=== PATIENT | female | born 2000 | race Two or more races ===

== ENCOUNTER 2024-09-16 01:43 | Emergency (ER) | payer MEDICAID ==
[~2024-09-16] VITALS: Ht 157.5 cm; Wt 72.8 kg
[2024-09-16 01:51] VITALS: BP 141/71; PULSE 82; RESP 12; TEMP 98.9; O2SAT 95
[2024-09-16] MEDS ORDERED: ACET500T58 PO (02:10)
[2024-09-16] MEDS ORDERED: AMOX875T4 PO (02:10)
[2024-09-16] MEDS ORDERED: PRED20TA2 PO (02:10)
--- NOTE | 2024-09-16 02:10 | ED.PDOC ---
Eye-HPI HPI Comments 24-year-old female presents to ER with complaints of sore throat x1 week. Patient reports he has been experiencing a painful sore throat with white patches to tonsils x1 week. She rates her current sore throat pain an 8/10. States she has been taking Tylenol for pain with slight relief. Patient presents to ER ambulatory on arrival, with steady gait, in no distress. Denies fever, shortness of breath, cough, difficulty swallowing, nausea/vomiting, hea dache, known exposure to sick contacts or any further symptoms/complaints Chief Complaint: Sore Throat Time Seen by MD: 01:55 Primary Care Provider: UNKNOWN Reviewed Notes: Nurses Notes, Medications, Allergies Allergies: Coded Allergies: NO KNOWN ALLERGIES (Unverified , 09/16/24) Home Meds Active Scripts Acetaminophen (Acetaminophen) 500 Mg Tab, 500 MG PO Q4HPRN, #30 TAB 0 Refills Prov:ISABEL GLEASON 09/16/24 Prednisone (Prednisone) 20 Mg Tab, 20 MG PO BID for 5 Days, #10 TAB 0 Refills Prov:ISABEL GLEASON 09/16/24 Amoxicillin & Pot Clavulanate (Amoxicillin/Potassium Cla) 875 Mg Tab, 1 TAB PO BID for 7 Days, #14 TAB 0 Refills Prov:ISABEL GLEASON 09/16/24 Information Source: Patient Mode of Arrival: Ambulatory Past Medical History 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 Family History Family History: Unknown Social History Smoker: Non-Smoker Alcohol: Denies ETOH Use Drugs: Denies Drug Use Lives In: Home Constitutional: denies: chills, diaphoresis, fatigue, fever, malaise, sweats, weakness, others EENTM: reports: others ( STATED IN HPI) Respiratory: denies: cough, hemoptysis, orthopnea, SOB at rest, shortness of breath, SOB with excertion, stridor, wheezing, others Cardiovascular: denies: chest pain, dizzy spells, diaphoresis, Dyspnea on exertion, edema, irregular heart beat, left arm pain, lightheadedness, palpitations, PND, syncope, others Gastrointestinal: denies: abdomen distended, abdominal pain, blood streaked bowels, constipated, diarrhea, dysphagia, difficulty swallowing, hematemesis, melena, nausea, poor appetite, poor fluid intake, rectal bleeding, rectal pain, vomiting, others Genitourinary: denies: abnormal vagina bleeding, burning, dyspareunia, dysuria, flank pain, frequency, hematuria, incontinence, pain, , vagina discharge, urgency, others Neurological: denies: dizziness, fainting, headache, left sided numbness, left sided weakness, numbness, paresthesia, pre-existing deficit, right sided numbness, right sided weakness, seizure, speech problems, tingling, tremors, weakness, others Musculoskeletal: denies: back pain, gout, joint pain, joint swelling, muscle pain, muscle stiffness, neck pain, others Integumetry: denies: bruises, change in color, change in hair/nails, dryness, laceration, lesions, lumps, rash, wounds, others Allergic/Immunocompromised: denies: Difficulty Healing, Frequent Infections, Hives, Itching, others Hematologic/Lymphatic: denies: anemia, blood clots, easy bleeding, easy bruising, swollen glands, others Endocrine: denies: excessive hunger, excessive sweating, excessive thirst, excessive urination, flushing, intolerance to cold, intolerance to heat, unexplained weight gain, unexplained weight loss, others Psychiatric: denies: anxiety, bipolar disorder, depression, hopeless, panic disorder, schizophrenia, sleepless, suicidal, others Physical Exam General Appearance: No Apparent Distress HEENT: PERRL/EOMI, Pharyngeal Erythema (MILD TONSILLAR SWELLING/ERYTHEMA NOTED BILATERALLY WITH WHITE EXUDATES NOTED ON BILATERAL TONSILS. UVULA-NORMAL), TMs Normal Neck: Full Range of Motion, Non-Tender, Other (BILATERALLY CERVICAL LYMPHADENOPATHY) Respiratory: Chest Non-Tender, Lungs Clear, No Accessory Muscle Use, No Respiratory Distress, Normal Breath Sounds Cardiovascular: No Murmur, No Gallop, Regular Rate/Rhythm Breast Exam: Deferred Gastrointestinal: NOT DONE Genitalia: Deferred Pelvic: Deferred Rectal: Deferred Extremities: Normal capillary refill, Normal range of motion Neurologic: Alert, inspector rough castings II-XII nml as Tested, No Motor Deficits, Normal Affect, Normal Mood, No Sensory Deficits Cerebellar Function: Normal Reflexes: Normal Skin: Dry, Normal Color, Warm Peripheral Pulses: 2+ carotid (R), 2+ carotid (L), 2+ Radial (R), 2+ Radial (L), 2+ Brachial (R), 2+ Brachial (L) Lymphatic: Other (BILATERAL CERVICAL LYMPHADENOPATHY) Was a procedure done? Was a procedure done?: No Sedation Sedation?: No EENT DIFF Eye: N/A Sore Throat: Epiglottitis, Mononeucleosis, Peritonsillar Abscess X-Ray, Labs, Meds, VS Vital Signs Date Time Temp Pulse Resp B/P (MAP) Pulse Ox O2 Delivery O2 Flow Rate FiO2 09/16/24 01:51 98.9 82 12 141/71 (94) 95 98.9 Lab Test 09/16/24 01:53 Range/Units Group A Streptococcus Rapid Negative STREP SWAB REVIEWED - NEGATIVE ROCEPHIN 1 G IM ORDERED SOLU-MEDROL 125 MG IM ORDERED PATIENT HAD IMPROVEMENT IN SYMPTOMS, TOLERATING P.O. INTAKE WELL AND IN NO DISTRESS PRIOR TO DISCHARGE ADVISED TO DRINK PLENTY OF FLUIDS ADVISED TO FOLLOW UP WITH PCP IN 1-2 DAYS PATIENT VERBALIZED UNDERSTANDING AND AGREEABLE WITH CURRENT PLAN OF CARE ADVISED TO RETURN TO ER IMMEDIATELY IF SYMPTOMS WORSEN Time of 1ST Reevaluation: 01:44 Reevaluation 1ST: N/A Patient Education/Counseling: Diagnosis, Treatment, Prognosis, Need For Follow Up Family Education/Counseling: No Family Present Departure 1 Departure Time of Disposition: 02:02 Impression: Primary Impression: Acute tonsillitis Qualified Codes: J03.90 - Acute tonsillitis, unspecified Disposition: 01 HOME / SELF CARE / HOMELESS Condition: Stable e-Prescriptions Acetaminophen (Acetaminophen) 500 Mg Tab 500 MG PO Q4HPRN, #30 TAB 0 Refills Prov: ISABEL GLEASON 09/16/24 Prednisone (Prednisone) 20 Mg Tab 20 MG PO BID for 5 Days, #10 TAB 0 Refills Prov: ISABEL GLEASON 09/16/24 Amoxicillin & Pot Clavulanate (Amoxicillin/Potassium Cla) 875 Mg Tab 1 TAB PO BID for 7 Days, #14 TAB 0 Refills Prov: ISABEL GLEASON 09/16/24 Discharged With: Self Critical Care Note Critical Care Time?: No Stability Stability form required: No Heart Score Heart Score: Heart Score Response (Comments) Value History N/A 0 EKG N/A 0 Age N/A 0 Risk Factors N/A 0 Troponin N/A 0 Total 0 ISABEL GLEASON Sep 16, 2024 02:10
[2024-09-16 02:23] LABS: Rapid Strep A Screen-Throat Negative
[2024-09-16] MEDS: cefTRIAXone SOD 1,000 MG VL IM ONE (02:47)
[2024-09-16] MEDS: methylPREDNISolone SOD SUCC 125 MG/2 ML VL ONE (02:47)
[2024-09-16] MEDS: cefTRIAXone SOD 1,000 MG VL ONE (02:47)
[2024-09-16] MEDS: methylPREDNISolone SOD SUCC 125 MG/2 ML VL IM ONE (02:47)
== END 2024-09-16 02:50 | disposition home or self-care (01) ==
LOC: ER 01:43
DX: J03.90 Acute tonsillitis, unspecified (principal); Z98.890 Other specified postprocedural states; Z79.899 Other long term (current) drug therapy; Z79.52 Long term (current) use of systemic steroids
CPT/HCPCS: 87070; 87880; 96372; 99284; J0696; J2919

== ENCOUNTER 2025-06-16 01:06 | Emergency (ER) | payer MEDICAID ==
[~2025-06-16] VITALS: Ht 157.5 cm; Wt 66.9 kg
[~2025-06-16 01:06] MED LIST: ACET500T58 PO; AMOX875T4 PO; PRED20TA2 PO
[2025-06-16 01:26] VITALS: BP 132/87; PULSE 96; RESP 16; TEMP 98.9; O2SAT 98
[2025-06-16] MEDS ORDERED: ZOFR4T PO (01:29)
--- NOTE | 2025-06-16 01:29 | ED.PDOC ---
HPI (NEURO) HPI Comments 24-YEAR-OLD FEMALE PRESENTS TO ER WITH COMPLAINTS OF HEADACHE X1 DAY. PATIENT WITH PMH OF MIGRAINES, REPORTS SHE STARTED EXPERIENCING 6/10 HEADACHE DIFFUSE TO FOREHEAD WITH ASSOCIATED N/V AND PHOTOPHOBIA AT 11 P.M. WHILE RESTING AT HOME. STATES SHE TOOK TYLENOL FOR HER PAIN WITH SLIGHT RELIEF PRESENTS TO ER AMBULATORY ON ARRIVAL, ALERT ORIENTED X4, WITH STEADY, IN NO DISTRESS WITH VITALS STABLE. STATES SHE HAS HAD SIMILAR SYMPTOMS IN THE PAST RELATED TO A "MIGRAINE". 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 Family History Family History: Unknown Social History Smoker: Non-Smoker Alcohol: Denies ETOH Use Drugs: Denies Drug Use Lives In: Home Constitutional: denies: chills, diaphoresis, fatigue, fever, malaise, sweats, weakness, others EENTM: denies: blurred vision, double vision, ear bleeding, ear discharge, ear drainage, ear pain, ear ringing, eye pain, eye redness, hearing loss, mouth pa in, mouth swelling, nasal discharge, nose bleeding, nose congestion, nose pain, photophobia, tearing, throat pain, throat swelling, voice changes, others Respiratory: denies: cough, hemoptysis, orthopnea, SOB at rest, shortness of breath, SOB with excertion, stridor, wheezing, others Cardiovascular: denies: chest pain, dizzy spells, diaphoresis, Dyspnea on exertion, edema, irregular heart beat, left arm pain, lightheadedness, palpitations, PND, syncope, others Gastrointestinal: reports: others ( STATED IN HPI) Genitourinary: denies: abnormal vagina bleeding, burning, dyspareunia, dysuria, flank pain, frequency, hematuria, incontinence, pain, , vagina discharge, urgency, others Neurological: reports: others ( STATED IN HPI) Musculoskeletal: denies: back pain, gout, joint pain, joint swelling, muscle pain, muscle stiffness, neck pain, others Integumetry: denies: bruises, change in color, change in hair/nails, dryness, laceration, lesions, lumps, rash, wounds, others Allergic/Immunocompromised: denies: Difficulty Healing, Frequent Infections, Hives, Itching, others Hematologic/Lymphatic: denies: anemia, blood clots, easy bleeding, easy bruis ing, swollen glands, others Endocrine: denies: excessive hunger, excessive sweating, excessive thirst, exc essive urination, flushing, intolerance to cold, intolerance to heat, unexplained weight gain, unexplained weight loss, others Psychiatric: denies: anxiety, bipolar disorder, depression, hopeless, panic disorder, schizophrenia, sleepless, suicidal, others Physical Exam General Appearance: No Apparent Distress HEENT: Normal ENT Inspection, PERRL/EOMI, Pharynx Normal, TMs Normal Neck: Full Range of Motion, Non-Tender, Normal Respiratory: Chest Non-Tender, Lungs Clear, No Accessory Muscle Use, No Respiratory Distress, Normal Breath Sounds Cardiovascular: No Murmur, No Gallop, Regular Rate/Rhythm Breast Exam: Deferred Gastrointestinal: NOT DONE Genitalia: Deferred Pelvic: Deferred Rectal: Deferred Extremities: Normal capillary refill, Normal range of motion Neurologic: Alert, it technical support specialist II-XII nml as Tested, No Motor Deficits, Normal Affect, Normal Mood, No Sensory Deficits Cerebellar Function: Normal Reflexes: Normal Skin: Dry, Normal Color, Warm Peripheral Pulses: 2+ carotid (R), 2+ carotid (L), 2+ Radial (R), 2+ Radial (L), 2+ Brachial (R), 2+ Brachial (L) Lymphatic: No Adenopathy Was a procedure done? Was a procedure done?: No Sedation Sedation?: No Differential Diagnosis (SZ) Headache: Cluster, Migraine, Subarachnoid Hemorrhage, Subdural Hemorrhage, Mass Lesion X-Ray, Labs, Meds, VS Vital Signs Date Time Temp Pulse Resp B/P (MAP) Pulse Ox O2 Delivery O2 Flow Rate FiO2 06/16/25 01:26 98.9 96 16 132/87 (102) 98 98.9 06/16/25 01:26 Room Air* 0 21 06/16/25 01:08 98.9 96 16 132/87 98 98.9 Lab Test 06/16/25 01:25 Range/Units Urine Color Yellow Yellow Urine Clarity Clear Clear Urine pH 6.0 5.0-9.0 Urine Specific Martin 1.036 H 1.001-1.035 Urine Protein Trace H Negative Urine Ketones Trace Negative Urine Blood 1+ H Negative /uL Urine Nitrite Negative Negative Urine Bilirubin Negative Negative Urine Urobilinogen Normal Negative mg/dL Urine Leukocyte Esterase Negative Negative /uL Urine RBC 4 0 - 4 /hpf Urine Microscopic WBC 1 0-5 /HPF Urine Squamous Epithelial Cells Few <5 /hpf Urine Bacteria None seen None Seen /hpf Urine Mucus Few None Seen Urine Glucose Normal Normal mg/dL Influenza Type A Antigen Negative Negative Influenza Type B Antigen Negative Negative SARS-CoV-2 Antigen (Rapid) Negative NEGATIVE Current Medications Medications (Trade) Dose Ordered Sig/Rosa Route Start Time Stop Time Status Last Admin Ondansetron HCl (Zofran Po) 4 mg ONCE ONCE PO 06/16/25 01:30 06/16/25 01:31 DC 06/16/25 01:34 Ibuprofen (Motrin Tablet) 800 mg ONCE ONCE PO 06/16/25 01:30 06/16/25 01:31 DC 06/16/25 01:34 SWAB RESULTS REVIEWED-NEGATIVE URINALYSIS REVIEWED WITHOUT ANY SIGNIFICANT ABNORMALITIES IBUPROFEN 800 MG P.O. ORDERED ZOFRAN 4 MG P.O. ORDERED PATIENT HAD IMPROVEMENT IN SYMPTOMS, VITALS STABLE, WELL APPEARING WAS ASYMPTOMATIC PRIOR TO DISCHARGE ADVISED TO DRINK PLENTY OF FLUIDS ADVISED TO FOLLOW UP WITH PCP IN 1-2 DAYS PATIENT VERBALIZED UNDERSTANDING AND AGREEABLE WITH CURRENT PLAN OF CARE ADVISED TO RETURN TO ER IMMEDIATELY IF SYMPTOMS WORSEN Time of 1ST Reevaluation: 01:12 Reevaluation 1ST: N/A Time of 2ND Reevaluation: 02:12 Reevaluation 2ND: Resolved Patient Education/Counseling: Diagnosis, Treatment, Prognosis, Need For Follow Up Family Education/Counseling: No Family Present Departure 1 Departure Time of Disposition: 02:14 Impression: Primary Impression: Tension headache Disposition: 01 HOME / SELF CARE / HOMELESS Condition: Stable e-Prescriptions Ondansetron Odt 4MG Tab (ZOFRAN PO) 4 Mg Tb 4 MG PO Q8HPRN, #14 TAB 0 Refills ODT TAB-DISSOLVE IN MOUTH, THEN SWALLOW Prov: ISABEL GLEASON 06/16/25 Acetaminophen (Acetaminophen) 500 Mg Tab 500 MG PO Q4HPRN, #30 TAB 0 Refills Prov: ISABEL GLEASON 06/16/25 Discharged With: Self Critical Care Note Critical Care Time?: No Stability Stability form required: No Heart Score Heart Score: Heart Score Response (Comments) Value History N/A 0 EKG N/A 0 Age N/A 0 Risk Factors N/A 0 Troponin N/A 0 Total 0 ISABEL GLEASON Jun 16, 2025 01:29
[2025-06-16] MEDS: IBUPROFEN 800 MG TAB PO ONE (01:34)
[2025-06-16] MEDS: ONDANSETRON ODT 4 MG TAB PO ONE (01:34)
[2025-06-16 02:01] LABS: Urine Protein, UAD TRACE (Negative)
[2025-06-16 02:11] LABS: COVID19 ANTIGEN SOFIA FIA NEGATIVE (NEGATIVE)
== END 2025-06-16 02:18 | disposition home or self-care (01) ==
LOC: ER 01:06
DX: G44.209 Tension-type headache, unspecified, not intractable (principal); Z98.890 Other specified postprocedural states; Z20.822 Contact with and (suspected) exposure to COVID-19
CPT/HCPCS: 36415; 81001; 87426; 87804; 99283; Q0162